=== PATIENT | male | born 1995 | race Caucasian/White ===

== ENCOUNTER 2017-05-23 15:45 | Inpatient (IN) ==
[2017-05-23] MEDS ORDERED: Haloperidol Lactate 5 MG/ML VIAL IVP ONE (15:48)
[2017-05-23] MEDS ORDERED: Haloperidol Lactate 5 MG/ML VIAL ONE ×2 (15:49→16:12)
[2017-05-23] MEDS ORDERED: *HR* LORazepam 2 MG/ML VIAL ONE ×2 (15:49→16:12)
[2017-05-23] MEDS ORDERED: *HR* LORazepam 2 MG/ML VIAL IM ONE (15:52)
[2017-05-23] MEDS ORDERED: Haloperidol Lactate 5 MG/ML VIAL IM ONE (15:52)
[2017-05-23] MEDS ORDERED: Ziprasidone injection 20 MG/ML VIAL IM ONE ×2 (16:17→16:44)
--- NOTE | 2017-05-23 16:41 | Emergency Department Note ---
Overdose - Lab Data Lab results reviewed: Yes I reviewed the patient's lab results. Result diagrams: 05/23/17 16:44 05/23/17 16:44 Lab Results 05/23/17 05/23/17 05/23/17 Range/Units 16:44 16:44 17:45 WBC 12.0 H (4.3-11.1) K/mcL RBC 5.28 (4.19-5.50) M/mcL Hgb 16.2 (12.9-16.9) g/dL Hct 49.5 (37.5-50.1) % MCV 93.8 (83.0-100.0) fL MCH 30.7 (28.0-33.3) pg MCHC 32.7 (31.6-35.5) g/dL RDW 13.1 (11.5-14.5) % Plt Count 316 (140-400) K/mcL MPV 9.9 (9.4-12.4) fL Immature Gran % 0.8 (0-4) % Seg Neutrophils % 56.5 % Lymphocytes % 32.0 % Monocytes % 5.8 % Eosinophils % 3.8 % Basophils % 1.1 % Neutrophils # 6.8 (1.6-8.9) K/mcL Lymphocytes # 3.8 (0.6-4.6) K/mcL Monocytes # 0.7 (0.0-1.3) K/mcL Eosinophils # 0.5 (0.0-0.6) K/mcL Basophils # 0.1 (0.0-0.2) K/mcL Sodium 141 (136-145) mEq/L Potassium 3.7 (3.5-4.5) mEq/L Chloride 102 (98-109) mEq/L Carbon Dioxide 10 L* (19-29) mEq/L BUN 10 (8-26) mg/dL Creatinine 1.19 (0.72-1.25) mg/dL Est GFR ( Amer) > 60 (> 60) Est GFR (Non-Af Amer) > 60 (> 60) BUN/Creatinine Ratio 8 (6-26) Glucose 199 H (70-99) mg/dL Calculated Osmolality 297 (280-300) Calcium 10.3 (8.6-10.8) mg/dL Total Bilirubin 0.7 (0.2-1.2) mg/dL Direct Bilirubin 0.3 (0.0-0.5) mg/dL Indirect Bilirubin 0.4 (0.0-1.2) mg/dL AST 31 (5-34) Units/L ALT 36 (0-55) Units/L Alkaline Phosphatase 84 (38-126) Units/L Serum Total Protein 8.1 (6.0-8.3) g/dL Albumin 4.2 (3.5-5.0) g/dL Globulin 3.9 H (2.4-3.5) g/dL Albumin/Globulin Ratio 1.1 (1.1-2.2) Urine Color Yellow (Yellow) Urine Clarity Clear (Clear) Urine pH 5.0 (5.0-8.0) pH Units Ur Specific Dresher > 1.030 H (1.010-1.025) Urine Protein 30 H (Neg-Trace) mg/dL Urine Glucose (UA) Normal (Normal) mg/dL Urine Ketones Negative (Negative) mg/dL Urine Blood Negative (Negative) Urine Nitrite Negative (Negative) Urine Bilirubin Negative (Negative) Urine Urobilinogen Normal (Normal) mg/dL Ur Leukocyte Esterase Negative (Negative) Urine Microscopic RBC 3-5 H (0-3) per hpf Urine Microscopic WBC 5-15 H (0-3) per hpf Ur Squamous Epith Cells Many H (None-Few) per lpf Amorphous Sediment Few (Few) Urine Bacteria None Seen (None-Few) per hpf Hyaline Casts Moderate H (None-Few) per lpf Salicylates < 5.0 L (15-30) mg/dL Urine Opiates Screen (Lldhul=514) ng/mL Acetaminophen 209.0 H* (10-30) mcg/mL Ur Barbiturates Screen (Xjlkdc=979) ng/mL Ur Phencyclidine Scrn (Cutoff=25) ng/mL Ur Amphetamines Screen (Pbmjpw=7156) ng/mL U Benzodiazepines Scrn (Hmyjgv=053) ng/mL Urine Cocaine Screen (Cutoff= 300) ng/mL U Marijuana (THC) Screen (Cutoff = 50) ng/mL Ethyl Alcohol < 10 (0-10) mg/dL 05/23/17 05/23/17 Range/Units 17:47 19:47 WBC (4.3-11.1) K/mcL RBC (4.19-5.50) M/mcL Hgb (12.9-16.9) g/dL Hct (37.5-50.1) % MCV (83.0-100.0) fL MCH (28.0-33.3) pg MCHC (31.6-35.5) g/dL RDW (11.5-14.5) % Plt Count (140-400) K/mcL MPV (9.4-12.4) fL Immature Gran % (0-4) % Seg Neutrophils % % Lymphocytes % % Monocytes % % Eosinophils % % Basophils % % Neutrophils # (1.6-8.9) K/mcL Lymphocytes # (0.6-4.6) K/mcL Monocytes # (0.0-1.3) K/mcL Eosinophils # (0.0-0.6) K/mcL Basophils # (0.0-0.2) K/mcL Sodium (136-145) mEq/L Potassium (3.5-4.5) mEq/L Chloride (98-109) mEq/L Carbon Dioxide (19-29) mEq/L BUN (8-26) mg/dL Creatinine (0.72-1.25) mg/dL Est GFR ( Amer) (> 60) Est GFR (Non-Af Amer) (> 60) BUN/Creatinine Ratio (6-26) Glucose (70-99) mg/dL Calculated Osmolality (280-300) Calcium (8.6-10.8) mg/dL Total Bilirubin (0.2-1.2) mg/dL Direct Bilirubin (0.0-0.5) mg/dL Indirect Bilirubin (0.0-1.2) mg/dL AST (5-34) Units/L ALT (0-55) Units/L Alkaline Phosphatase (38-126) Units/L Serum Total Protein (6.0-8.3) g/dL Albumin (3.5-5.0) g/dL Globulin (2.4-3.5) g/dL Albumin/Globulin Ratio (1.1-2.2) Urine Color (Yellow) Urine Clarity (Clear) Urine pH (5.0-8.0) pH Units Ur Specific Dresher (1.010-1.025) Urine Protein (Neg-Trace) mg/dL Urine Glucose (UA) (Normal) mg/dL Urine Ketones (Negative) mg/dL Urine Blood (Negative) Urine Nitrite (Negative) Urine Bilirubin (Negative) Urine Urobilinogen (Normal) mg/dL Ur Leukocyte Esterase (Negative) Urine Microscopic RBC (0-3) per hpf Urine Microscopic WBC (0-3) per hpf Ur Squamous Epith Cells (None-Few) per lpf Amorphous Sediment (Few) Urine Bacteria (None-Few) per hpf Hyaline Casts (None-Few) per lpf Salicylates (15-30) mg/dL Urine Opiates Screen Negative (Hvmokk=265) ng/mL Acetaminophen 169.0 H* (10-30) mcg/mL Ur Barbiturates Screen Negative (Thkxwa=036) ng/mL Ur Phencyclidine Scrn Negative (Cutoff=25) ng/mL Ur Amphetamines Screen Negative (Bmkaxh=2804) ng/mL U Benzodiazepines Scrn Negative (Hpzjij=581) ng/mL Urine Cocaine Screen Negative (Cutoff= 300) ng/mL U Marijuana (THC) Screen Positive H (Cutoff = 50) ng/mL Ethyl Alcohol (0-10) mg/dL - EKG Data EKG attestation: Yes I reviewed and interpreted this EKG. EKG results narrative: Sinus tachycardia rate 122 when necessary 117 QRS 90 QT/QTC 325/397. No acute ST segment elevation Overdose HPI - General Chief Complaint: ED Psychiatric Symptoms Stated Complaint: overdose Time Seen by Provider: 05/23/17 15:48 Source: patient, family, EMS Mode of arrival: EMS Limitations: no limitations, other (Patient's refusal to cooperate) Nursing Notes Reviewed: Yes Vital Signs Reviewed: Yes - History of Present Illness HPI Narrative: Patient arrives via EMS. He admits to swallowing approximately 3 bottles of dose unknown acetaminophen approximately 45 minutes prior to arrival. He thinks there were 24 tablets per bottle. He also took generic [id number] sleep aids of unknown name. He did not vomit after the ingestion. He denies ingestion of any illicit drugs or co-intoxicants Pt Subjective Complaint: intentional overdose Onset (ago): Just [employer] Intent: suicide attempt How Overdose Was Discovered: called counselor (attempted multiple times to call the crisis center) Associated symptoms: depression Treatments Prior to Arrival: none - Related Data Previous Rx's Medication Instructions Recorded Amoxicillin/Clavulanate [Augmentin] 875 mg PO BIDWM #10 tablet 08/29/16 Ibuprofen [Motrin] 600 mg PO Q6HR PRN #20 tab 08/29/16 Albuterol Sulfate [Albuterol 2 puff IH Q4HR PRN #1 hfa.[id number].ad 12/20/16 Inhaler] Sulfamethoxazole/Trimeth DS 1 each PO BID #20 tablet 12/20/16 [Bactrim DS] cephALEXin [Keflex] 500 mg PO QID #40 capsule 12/20/16 Cephalexin [Keflex] 500 mg PO QID #28 capsule 04/23/17 Ibuprofen [Motrin] 600 mg PO Q8HR PRN #20 tab 04/23/17 Sulfamethoxazole/Trimeth DS 1 each PO BID #14 tablet 04/23/17 [Bactrim DS] Allergies Allergy/AdvReac Type Severity Reaction Status Date / Time No Known Allergies Allergy Verified 12/20/16 01:37 Limitations: ROS unobtainable due to patients medical condition Past Medical History - Past Medical History Source: patient Medical history: Reports: no medical history Surgical history: Reports: non-contributory Psychiatric history: Reports: depression - Social History Smoking Status: Current every day smoker Smokeless Tobacco Status: No Alcohol use: Reports: none Drug use: Reports: none Physical Exam Patient initially refused to cooperate. He was nonverbal - General Limitations: no limitations, other General appearance: alert, anxious - Head Head exam: atraumatic - Eye Eye exam: Present: normal appearance, PERRL - ENT ENT exam: normal exam - Neck Neck exam: Present: normal inspection, full ROM - Chest Chest inspection: Present: normal inspection, symmetric chest wall rise - Respiratory Respiratory exam: Present: normal lung sounds bilaterally - Cardiovascular Cardiovascular exam: Present: tachycardia - Abdominal Exam Abdominal exam: Present: soft, Non-Tender - Rectal Exam Rectal exam: Present: deferred - Male exam: Present: normal inspection - Extremities Exam Extremities exam: Present: normal inspection - Neurological Exam Neurological exam: Present: alert, oriented X3, CN II-XII intact - Psychiatric Psychiatric exam: Present: agitated, anxious - Skin Skin exam: Present: warm, dry, intact Course Course Narrative: Patient arrives by EMS. He admits to taking 3 bottles of 24 account acetaminophen 45 minutes prior to arrival. He became acutely agitated and aggressive with staff. He attempted to relieve that required physical restraint by staff. He was spitting, cursing, punching, kicking. He required chemical sedation with Haldol and Ativan and then subsequently with Geodon. He also required physical restraints. This was done in the patient's best interest in order to facilitate medical treatment and psychiatric evaluation. The mother is at bedside. She states the patient has a history of depression and bipolar and she cannot control his behavior either. She agrees with our management including our need to restrain the patient for evaluation - Reevaluation(s) Reevaluation #1: Patient sleeping. Sedative medications have taken appropriate affect Time: 17:32 - Consultations Consultation #1: poison control center Time: 16:51 Consultation #2: call again placed to [facility] Time: 20:12 Vital Signs Temperature 97.6 F 05/23/17 15:55 Pulse Rate 131 05/23/17 15:55 Respiratory Rate 20 05/23/17 15:55 Blood Pressure 144/89 05/23/17 15:55 O2 Sat by Pulse Oximetry 97 05/23/17 15:55 Temperature 97.6 F 05/23/17 15:55 Pulse Rate 80 05/23/17 18:55 Respiratory Rate 97 05/23/17 18:55 Blood Pressure 117/66 05/23/17 18:55 O2 Sat by Pulse Oximetry 97 05/23/17 18:55 Oxygen Delivery Oxygen Delivery Room Air Critical Care Time Critical Care Time: Yes Total Critical Care Time: 60 Attestation: The high probability of a clinically significant, sudden or life threatening deterioration of the [] system(s) required my full and direct attention, intervention and personal management. The aggregate critical care time was [] minutes. This time is in addition to time spent performing reported procedures but includes the following: [] Data Review and interpretation [] Patient assessment and monitoring of vital signs [] Documentation [] Medication orders and management Disposition Clinical Impression: Suicidal ideation Tylenol overdose Qualifiers: Encounter type: initial encounter Injury intent: intentional self-harm Qualified Code(s): T39.1X2A - Poisoning by 4-Aminophenol derivatives, intentional self-harm, initial encounter Tylenol poisoning Qualifiers: Encounter type: initial encounter Injury intent: intentional self-harm Qualified Code(s): T39.1X2A - Poisoning by 4-Aminophenol derivatives, intentional self-harm, initial encounter Psychosis Qualifiers: Psychosis type: unspecified psychosis type Qualified Code(s): F29 - Unspecified psychosis not due to a substance or known physiological condition Disposition: Admitted As Inpatient Condition: Serious Referrals: NONE,PCP [Primary Care Provider] - Forms: ED Satisfaction Letter Time of Disposition: 20:15
[2017-05-23 16:52] LABS: Basophils # 0.1 K/mcL (0.0-0.2); Basophils % 1.1 %; Eosinophils # 0.5 K/mcL (0.0-0.6); Eosinophils % 3.8 %; Hematocrit 49.5 % (37.5-50.1); Hemoglobin 16.2 g/dL (12.9-16.9); Immature Granulocytes % 0.8 % (0-4); Lymphocytes # 3.8 K/mcL (0.6-4.6); Mean Corpuscular HGB Conc 32.7 g/dL (31.6-35.5); Mean Corpuscular Hemoglobin 30.7 pg (28.0-33.3); Mean Corpuscular Volume 93.8 fL (83.0-100.0); Mean Platelet Volume 9.9 fL (9.4-12.4); Monocytes # 0.7 K/mcL (0.0-1.3); Monocytes % 5.8 %; Neutrophils # 6.8 K/mcL (1.6-8.9); Platelet Count 316 K/mcL (140-400); Red Blood Count 5.28 M/mcL (4.19-5.50); Red Cell Distribution Width 13.1 % (11.5-14.5); Segmented Neutrophils % 56.5 %
[2017-05-23] MEDS ORDERED: 0.9 % Sodium Chloride 1,000 ML ONE (16:56)
[2017-05-23 17:07] LABS: Alanine Aminotransferase 36 Units/L (0-55); Albumin 4.2 g/dL (3.5-5.0); Albumin/Globulin Ratio 1.1 (1.1-2.2); Alkaline Phosphatase 84 Units/L (38-126); Aspartate Amino Transferase 31 Units/L (5-34); BUN/Creatinine Ratio 8 (6-26); Bilirubin,Direct 0.3 mg/dL (0.0-0.5); Bilirubin,Indirect 0.4 mg/dL (0.0-1.2); Bilirubin,Total 0.7 mg/dL (0.2-1.2); Blood Urea Nitrogen 10 mg/dL (8-26); Calcium 10.3 mg/dL (8.6-10.8); Chloride 102 mEq/L (98-109); Globulin 3.9 g/dL (2.4-3.5); Glucose 199 mg/dL (70-99); Osmolality,Calculated 297 (280-300); Potassium 3.7 mEq/L (3.5-4.5); Sodium 141 mEq/L (136-145); Total Protein 8.1 g/dL (6.0-8.3); eGFR For African Americans > 60 (> 60); eGFR For Non-African Americans > 60 (> 60)
[2017-05-23 17:09] LABS: Ethanol < 10 mg/dL (0-10); Salicylate < 5.0 mg/dL (15-30)
[2017-05-23 17:12] LABS: Carbon Dioxide 10 mEq/L (19-29)
[2017-05-23 18:02] LABS: Bilirubin,Urine Negative (Negative); Blood,Urine Negative (Negative); Clarity,Urine Clear (Clear); Color,Urine Yellow (Yellow); Glucose,Urine (UA) Normal (Normal); Ketones,Urine Negative (Negative); Leukocyte Esterase,Urine Negative (Negative); Nitrite,Urine Negative (Negative); Protein,Urine 30 mg/dL (Neg-Trace); Specific Gravity,Urine > 1.030 (1.010-1.025); Urobilinogen,Urine Normal (Normal)
[2017-05-23 18:04] LABS: Bacteria,Urine None Seen per hpf (None-Few); Squamous Epithelial Cell,Urine Many per lpf (None-Few)
[2017-05-23 18:09] LABS: Amphetamine Screen,Urine Negative ng/mL (Cutoff=1000); Barbiturate Screen,Urine Negative ng/mL (Cutoff=200); Benzodiazepines Screen,Urine Negative ng/mL (Cutoff=200); Cannabinoid Screen,Urine Positive ng/mL (Cutoff = 50); Cocaine Screen,Urine Negative ng/mL (Cutoff= 300); Opiate Screen,Urine Negative ng/mL (Cutoff=300); Phencyclidine Screen,Urine Negative ng/mL (Cutoff=25)
[2017-05-23 18:16] LABS: Hyaline Casts,Urine Moderate per lpf (None-Few)
[2017-05-23 18:17] LABS: Amorphous Sediment,Urine Few (Few)
[2017-05-23] MEDS ORDERED: ACETYLCYSTEINE IVC ONE ×3 (20:12→22:30)
[2017-05-23] MEDS ORDERED: D5 IVC ONE ×3 (20:12→22:30)
[2017-05-23] MEDS ORDERED: WATER IVC ONE ×3 (20:12→22:30)
[2017-05-23] MEDS ORDERED: Ondansetron 4 MG/2 ML VIAL IVP ONE (22:19)
[2017-05-23] MEDS ORDERED: Ondansetron 4 MG/2 ML VIAL ONE (22:24)
[2017-05-23] MEDS ORDERED: Ipratropium/Albuterol Neb 3 ML IH PRN (22:57)
[2017-05-23] MEDS ORDERED: Ipratropium/Albuterol Neb 3 ML ONE (23:05)
[2017-05-23] MEDS: 0.9 % Sodium Chloride 1,000 ML IVC SCH (23:11)
[2017-05-23] MEDS ORDERED: *HR* LORazepam 2 MG/ML VIAL IVP PRN (23:12)
[2017-05-23] MEDS ORDERED: Naloxone 0.4 MG/ML INJ IVP PRN (23:12)
[2017-05-24 00:30] LABS: INR 1.2; Prothrombin Time 12.9 Seconds (9.4-12.1)
[2017-05-24 00:37] LABS: Alanine Aminotransferase 32 Units/L (0-55); Albumin 3.6 g/dL (3.5-5.0); Albumin/Globulin Ratio 1.3 (1.1-2.2); Alkaline Phosphatase 64 Units/L (38-126); Aspartate Amino Transferase 42 Units/L (5-34); BUN/Creatinine Ratio 14 (6-26); Blood Urea Nitrogen 11 mg/dL (8-26); Calcium 8.9 mg/dL (8.6-10.8); Carbon Dioxide 23 mEq/L (19-29); Chloride 108 mEq/L (98-109); Globulin 2.7 g/dL (2.4-3.5); Glucose 122 mg/dL (70-99); Osmolality,Calculated 289 (280-300); Potassium 3.8 mEq/L (3.5-4.5); Sodium 139 mEq/L (136-145); eGFR For African Americans > 60 (> 60); eGFR For Non-African Americans > 60 (> 60)
[2017-05-24 00:39] LABS: Bilirubin,Total 1.2 mg/dL (0.2-1.2); Total Protein 6.3 g/dL (6.0-8.3)
[2017-05-24] MEDS ORDERED: Acetylcysteine 6,800 MG in D5% in Water 1,000 ML IVC ONE (02:30)
--- NOTE | 2017-05-24 04:27 | Internal Med History&Physical ---
Date of Encounter: 05/23/17 Time of Encounter: 22:00 Assessment and Plan (1) Tylenol overdose Current visit: Yes Status: Acute Patient has Tylenol overdose, suicidal attempt. Elevated Tylenol level. Poison control hotline contacted - Place patient on close monitoring in ICU. - 21 hour NAC IV protocol started. - Closely follow-up liver function, PT/INR, acetaminophen level. Total critical care time 35 minutes including history and physical, medical decision making. Qualifiers: Encounter type: initial encounter Injury intent: intentional self-harm Qualified Code(s): T39.1X2A - Poisoning by 4-Aminophenol derivatives, intentional self-harm, initial encounter (2) DVT prophylaxis Current visit: Yes Status: Acute Heparin subcutaneously (3) Psychosis Current visit: Yes Status: Acute We will consult psychiatry Qualifiers: Psychosis type: unspecified psychosis type Qualified Code(s): F29 - Unspecified psychosis not due to a substance or known physiological condition (4) Suicidal ideation Current visit: Yes Status: Acute Patient has a suicidal attempt. Place on one-to-one sitter. Consult psychiatry as the patient medically stabilized. Internal Medicine - H&P: HPI Chief complaint: Acetaminophen overdose Admitted From: Home Plans for Post Hospital Care: Home History of present illness: Mr. Garner is a 21 year old male with history of psychosis present to ER for acetaminophen overdose. Patient is a sedated when I saw him. There is no family member at the bedside. History obtained from ER documentation. Patient intentionally take 3 bottle of acetaminophen, tried to kill himself. Patient send to ER, combative. He was given holdal and geoden and calm down. Poison control was called by ER. Patient needs to the criteria of NAC treatment. The 21 hour NAC iv protocol started. When I saw patient, patient can be wake up by shaking his a shoulder, airway is patent. Patient was admitted to ICU for close monitoring. Past Med Surg Social Fam HX - Past Medical History Medical history: asthma Psychiatric history: anxiety, bipolar, depression - Past Surgical History Surgical History: non-contributory - Social History Smoking Status: Current every day smoker Smokeless Tobacco Status: No Alcohol use: none Drug use: none - Family History Mother History Unknown: Yes Internal Medicine - H&P: Meds No Known Home Drugs 05/23/17 [History] 3 Allergy/AdvReac Type Severity Reaction Status Date / Time No Known Allergies Allergy Verified 12/20/16 01:37 All Systems PM: A 10-system review of systems was performed and is negative for pertinent findings except as documented above in the HPI. - Constitutional Vitals: Temp Pulse Resp BP Pulse Ox 98.2 F 56 13 118/75 96 05/23/17 23:00 05/24/17 04:00 05/24/17 04:00 05/24/17 04:00 05/24/17 04:00 General appearance: Present: A&O X 0, no acute distress Exam: Sedated, airway patent, wake up by stimulation. - Head Head exam: Present: atraumatic, normocephalic - Eye Eye exam: Present: PERRL, conjuntiva pink, sclera anicteric Pupils: Present: PERRL - Neck Neck exam general surgery: Present: supple, trachea midline. Absent: lymphadenopathy - Respiratory Respiratory exam: Present: CTAB. Absent: accessory muscle use, rales, rhonchi, wheezes - Cardiovascular Cardiovascular exam: Present: RRR, +S1, +S2. Absent: diastolic murmur, gallop, rubs, systolic murmur - GI/Abdominal GI/Abdominal exam: Present: normal bowel sounds, soft, no peritoneal signs. Absent: distended, tenderness - Extremities Exam Extremities exam: Present: warm, radial pulses palpable and symmetrical. Absent : calf tenderness, cyanotic, pedal edema - Neurological Exam Neurological exam: Present: CN II-XII intact, oriented X3, no focal deficits. Absent: pronater drift, facial droop, speech deficit - Skin Skin exam: Present: dry, intact Internal Med - H&P Results - Labs CBC & Chem 7: 05/23/17 16:44 05/24/17 00:14 Labs: BMP 05/24/17 00:14 Sodium 139 Potassium 3.8 Chloride 108 Carbon Dioxide 23 BUN 11 Creatinine 0.81 Glucose 122 H Calcium 8.9 Liver Function 05/24/17 Range/Units 00:14 Total Bilirubin 1.2 D (0.2-1.2) mg/dL AST 42 H (5-34) Units/L ALT 32 (0-55) Units/L Alkaline Phosphatase 64 (38-126) Units/L Albumin 3.6 (3.5-5.0) g/dL
[2017-05-24 05:03] LABS: Basophils # 0.1 K/mcL (0.0-0.2); Basophils % 0.8 %; Eosinophils # 0.2 K/mcL (0.0-0.6); Eosinophils % 1.9 %; Hemoglobin 14.1 g/dL (12.9-16.9); Immature Granulocytes % 0.3 % (0-4); Lymphocytes # 3.1 K/mcL (0.6-4.6); Lymphocytes % 25.2 %; Mean Corpuscular HGB Conc 34.4 g/dL (31.6-35.5); Mean Corpuscular Hemoglobin 30.6 pg (28.0-33.3); Mean Corpuscular Volume 88.9 fL (83.0-100.0); Mean Platelet Volume 10.3 fL (9.4-12.4); Monocytes # 0.8 K/mcL (0.0-1.3); Monocytes % 6.5 %; Neutrophils # 7.9 K/mcL (1.6-8.9); Platelet Count 266 K/mcL (140-400); Red Blood Count 4.61 M/mcL (4.19-5.50); Red Cell Distribution Width 13.2 % (11.5-14.5); Segmented Neutrophils % 65.3 %
[2017-05-24 05:08] LABS: INR 1.3; Prothrombin Time 14.6 Seconds (9.4-12.1)
[2017-05-24 05:23] LABS: Alanine Aminotransferase 33 Units/L (0-55); Albumin 3.1 g/dL (3.5-5.0); Albumin/Globulin Ratio 1.1 (1.1-2.2); Alkaline Phosphatase 58 Units/L (38-126); Aspartate Amino Transferase 43 Units/L (5-34); BUN/Creatinine Ratio 13 (6-26); Bilirubin,Total 1.1 mg/dL (0.2-1.2); Blood Urea Nitrogen 10 mg/dL (8-26); Calcium 8.4 mg/dL (8.6-10.8); Carbon Dioxide 22 mEq/L (19-29); Chloride 108 mEq/L (98-109); Globulin 2.9 g/dL (2.4-3.5); Glucose 103 mg/dL (70-99); Osmolality,Calculated 285 (280-300); Potassium 3.6 mEq/L (3.5-4.5); Sodium 138 mEq/L (136-145); eGFR For African Americans > 60 (> 60); eGFR For Non-African Americans > 60 (> 60)
[2017-05-24] MEDS: 0.9 % Sodium Chloride 1,000 ML IVC SCH (06:20)
[2017-05-24] MEDS ORDERED: Haloperidol Lactate 5 MG/ML VIAL IVP PRN (08:09)
[2017-05-24] MEDS ORDERED: *HR* LORazepam 2 MG/ML VIAL IVP PRN (08:10)
[2017-05-24 08:44] LABS: Alanine Aminotransferase 37 Units/L (0-55); Albumin 3.2 g/dL (3.5-5.0); Albumin/Globulin Ratio 1.1 (1.1-2.2); Alkaline Phosphatase 59 Units/L (38-126); Aspartate Amino Transferase 48 Units/L (5-34); BUN/Creatinine Ratio 13 (6-26); Bilirubin,Total 1.4 mg/dL (0.2-1.2); Blood Urea Nitrogen 10 mg/dL (8-26); Calcium 8.6 mg/dL (8.6-10.8); Carbon Dioxide 21 mEq/L (19-29); Chloride 108 mEq/L (98-109); Globulin 2.9 g/dL (2.4-3.5); Glucose 95 mg/dL (70-99); Osmolality,Calculated 289 (280-300); Potassium 3.7 mEq/L (3.5-4.5); Sodium 140 mEq/L (136-145); Total Protein 6.1 g/dL (6.0-8.3); eGFR For African Americans > 60 (> 60); eGFR For Non-African Americans > 60 (> 60)
[2017-05-24] MEDS: D5% in 0.9% NACL 1,000 ML IVC SCH ×3 (09:06→23:55)
--- NOTE | 2017-05-24 15:20 | Internal Med Progress Note ---
Date of Encounter: 05/24/17 Time of Encounter: 08:00 - Assessment and plan (1) Tylenol overdose Current Visit: Yes Status: Acute Assessment and plan: Tylenol overdose with suicidal attempt His initial Tylenol level 209 2 hrs after ingestion. this morning 24.0 16 hrs later Trending down nicely Noraml LFT's so far cont antidote Acetyl cysteine gtt Cont IVF Accu check ACHS Clear liquid diet and advance as tolerated Pt is still high risk for hepato toxicity.. however medically stable to transfer to [facility] / 2 A today Qualifiers: Encounter type: initial encounter Injury intent: intentional self-harm Qualified Code(s): T39.1X2A - Poisoning by 4-Aminophenol derivatives, intentional self-harm, initial encounter (2) Substance abuse Current Visit: Yes Status: Acute Assessment and plan: counseled to quit doing Marijuana and other illicit drugs on Ativan and Haldol prn for withdraw symptoms (3) Suicidal ideation Current Visit: Yes Status: Acute Assessment and plan: Denied any active suicidal ideation now cont 1 on 1 sitter Psych consulted (4) Tobacco dependence Current Visit: Yes Status: Acute Assessment and plan: counseled to quit on nicotine patch (5) Psychosis Current Visit: Yes Status: Acute Assessment and plan: Multi factorial could be due to metabolic encephaloapthy too improved now cont close monitoring on Ativan and Haldol PRN Qualifiers: Psychosis type: unspecified psychosis type Qualified Code(s): F29 - Unspecified psychosis not due to a substance or known physiological condition (6) Major depression Current Visit: Yes Status: Acute Assessment and plan: consulted Psych for further eval Qualifiers: Qualified Code(s): F32.9 - Major depressive disorder, single episode, unspecified - Subjective Interval history: Mr. Garner is a 21 year old male with known PMH of Bipolar / Depression , Poly substance abuse who was brought into ER by family y/d afternoon around 3.00 PM stating he did take a bottle full of Tylenol tablets an hour prior to ER visit around 2.00 PM. He did mentioned he is going through some personal problems lately, also he is feeling more depressed and unable to see a psychiatrist right on time, he wanted kill himself by overdoing on Tylenol tablets. He denied any Alcohol dependence / abuse or Illicit drug usage. However his UDS came back as positive for Marijuana. Pt stated he is feeling better now.. He is more alert, awake and O x 3. Denied any CP / SOB. Denied any suicidal ideation now. - Constitutional Vitals: Temp Pulse Resp BP Pulse Ox 98.2 F 72 19 132/65 94 05/24/17 11:06 05/24/17 11:45 05/24/17 11:45 05/24/17 11:45 05/24/17 11:45 General appearance: Present: A&O X 3, no acute distress - Head Head exam: Present: atraumatic, normal inspection - Neck Neck exam general surgery: Present: supple - Respiratory Respiratory exam: Present: CTAB. Absent: accessory muscle use, rales, rhonchi, wheezes - Cardiovascular Cardiovascular exam: Present: RRR, +S1, +S2. Absent: systolic murmur - GI/Abdominal GI/Abdominal exam: Present: normal bowel sounds, soft. Absent: distended, rebound, rigid, tenderness - Extremities Exam Extremities exam: Absent: calf tenderness, pedal edema, tenderness - Back Exam Back exam: Absent: CVA tenderness (L), CVA tenderness (R) - Neurological Exam Neurological exam: Present: alert, oriented X3, no focal deficits - Psychiatric Psychiatric exam: Present: depressed. Absent: agitated, homicidal ideation, manic, suicidal ideation Internal Medicine: Result - Labs CBC & Chem 7: 05/24/17 04:15 05/24/17 07:38 Labs: Short CBC 05/24/17 Range/Units 04:15 WBC 12.1 H (4.3-11.1) K/mcL Hgb 14.1 D (12.9-16.9) g/dL Hct 41.0 (37.5-50.1) % Plt Count 266 (140-400) K/mcL Neutrophils # 7.9 (1.6-8.9) K/mcL BMP 05/24/17 05/24/17 05/24/17 00:14 04:15 07:38 Sodium 139 138 140 Potassium 3.8 3.6 3.7 Chloride 108 108 108 Carbon Dioxide 23 22 21 BUN 11 10 10 Creatinine 0.81 0.80 0.78 Glucose 122 H 103 H 95 Calcium 8.9 8.4 L 8.6 Liver Function 05/24/17 05/24/17 05/24/17 Range/Units 00:14 04:15 07:38 Total Bilirubin 1.2 D 1.1 1.4 H (0.2-1.2) mg/dL AST 42 H 43 H 48 H (5-34) Units/L ALT 32 33 37 (0-55) Units/L Alkaline Phosphatase 64 58 59 (38-126) Units/L Albumin 3.6 3.1 L 3.2 L (3.5-5.0) g/dL - ABG Interpretation ABG results: PT/INR, D-dimer PT 14.6 Seconds (9.4-12.1) H 05/24/17 04:15 - VTE Documentation of Mechanical Device: Intermittent pneumatic compression device Consult Discharge Plan - Plan Referrals: NONE,PCP [Primary Care Provider] -
[2017-05-24 15:58] LABS: Albumin 3.3 g/dL (3.5-5.0); Albumin/Globulin Ratio 1.1 (1.1-2.2); Bilirubin,Direct 0.5 mg/dL (0.0-0.5); Bilirubin,Indirect 0.9 mg/dL (0.0-1.2); Bilirubin,Total 1.4 mg/dL (0.2-1.2); Total Protein 6.3 g/dL (6.0-8.3)
[2017-05-24] MEDS ORDERED: Acetylcysteine 6,500 MG in D5% in Water 1,000 ML IVC ONE (17:39)
[2017-05-24] MEDS ORDERED: Ondansetron 4 MG/2 ML VIAL IVP PRN (17:41)
--- NOTE | 2017-05-24 17:56 | Electrocardiograph Report ---
[address] [place], [place] [address] Test Date: 2017-05-23 Pat Name: Fili Garner Department: 104 Room: [facility] Gender: M Procedure Tech: : 1995 Requested By: Gagandeep Moy Order Number: [id number] Reading MD: Tristian Copeland MD Measurements Intervals [place] Rate: 122 P: 72 CA: 117 QRS: 70 QRSD: 90 T: 54 QT: 325 QTc: 397 Interpretive Statements SINUS TACHYCARDIA WITH SHORT CA INTERVAL Electronically Signed On 05-24-2017 17:54:21 EST by Tristian Copeland MD
[2017-05-24 23:51] LABS: Alanine Aminotransferase 52 Units/L (0-55); Albumin 3.4 g/dL (3.5-5.0); Albumin/Globulin Ratio 1.2 (1.1-2.2); Alkaline Phosphatase 62 Units/L (38-126); Aspartate Amino Transferase 53 Units/L (5-34); BUN/Creatinine Ratio 7 (6-26); Bilirubin,Total 1.1 mg/dL (0.2-1.2); Calcium 8.9 mg/dL (8.6-10.8); Carbon Dioxide 21 mEq/L (19-29); Chloride 111 mEq/L (98-109); Globulin 2.8 g/dL (2.4-3.5); Glucose 102 mg/dL (70-99); Osmolality,Calculated 287 (280-300); Potassium 3.8 mEq/L (3.5-4.5); Sodium 140 mEq/L (136-145); Total Protein 6.2 g/dL (6.0-8.3); eGFR For African Americans > 60 (> 60); eGFR For Non-African Americans > 60 (> 60)
[2017-05-24 23:53] LABS: Blood Urea Nitrogen 5 mg/dL (8-26)
[2017-05-25 01:48] LABS: Acetaminophen < 1.0 mcg/mL (10-30)
[2017-05-25 04:40] LABS: Basophils # 0.1 K/mcL (0.0-0.2); Basophils % 0.8 %; Eosinophils # 0.4 K/mcL (0.0-0.6); Eosinophils % 4.8 %; Hematocrit 39.7 % (37.5-50.1); Hemoglobin 13.3 g/dL (12.9-16.9); Immature Granulocytes % 0.3 % (0-4); Lymphocytes # 2.7 K/mcL (0.6-4.6); Lymphocytes % 34.9 %; Mean Corpuscular HGB Conc 33.5 g/dL (31.6-35.5); Mean Corpuscular Hemoglobin 30.6 pg (28.0-33.3); Mean Corpuscular Volume 91.5 fL (83.0-100.0); Mean Platelet Volume 10.1 fL (9.4-12.4); Monocytes # 0.5 K/mcL (0.0-1.3); Monocytes % 6.9 %; Platelet Count 261 K/mcL (140-400); Red Blood Count 4.34 M/mcL (4.19-5.50); Red Cell Distribution Width 12.8 % (11.5-14.5); Segmented Neutrophils % 52.3 %
[2017-05-25 04:53] LABS: BUN/Creatinine Ratio 6 (6-26); Carbon Dioxide 25 mEq/L (19-29); Chloride 110 mEq/L (98-109); Sodium 142 mEq/L (136-145); eGFR For African Americans > 60 (> 60)
[2017-05-25 04:54] LABS: Acetaminophen < 1.0 mcg/mL (10-30); Alanine Aminotransferase 51 Units/L (0-55); Albumin 3.1 g/dL (3.5-5.0); Albumin/Globulin Ratio 1.1 (1.1-2.2); Alkaline Phosphatase 57 Units/L (38-126); Aspartate Amino Transferase 48 Units/L (5-34); Bilirubin,Total 0.7 mg/dL (0.2-1.2); Blood Urea Nitrogen 4 mg/dL (8-26); Calcium 8.6 mg/dL (8.6-10.8); Globulin 2.9 g/dL (2.4-3.5); Glucose 117 mg/dL (70-99); Osmolality,Calculated 292 (280-300); eGFR For Non-African Americans > 60 (> 60)
[2017-05-25] MEDS ORDERED: *HR* LORazepam 0.5 MG TABLET PO PRN (08:27)
[2017-05-25] MEDS ORDERED: Acetylcysteine 6,500 MG in D5% in Water 1,000 ML IVC ONE (09:37)
--- NOTE | 2017-05-25 12:04 | Internal Med Progress Note ---
Date of Encounter: 05/25/17 Time of Encounter: 09:00 - Assessment and plan (1) Tylenol overdose Current Visit: Yes Status: Acute Assessment and plan: Tylenol overdose with suicidal attempt His initial Tylenol level 209 2 hrs after ingestion. went down to > 1.0 after 24hrs after ingestion Reviewed tylenol level this AM < 1.0 As per poison control recommendation will continue acetyl cystiene gtt for another 16 hrs - total 21+ 16hrs Bili went up to 1.4 and started trending down now.. this morning @ 0.7 AST also started trending down Accu check ACHS tolerating regular diet well Pt is still high risk for hepato toxicity. Qualifiers: Encounter type: initial encounter Injury intent: intentional self-harm Qualified Code(s): T39.1X2A - Poisoning by 4-Aminophenol derivatives, intentional self-harm, initial encounter (2) Substance abuse Current Visit: Yes Status: Acute Assessment and plan: counseled to quit doing Marijuana and other illicit drugs on Ativan and Haldol prn for withdraw symptoms (3) Suicidal ideation Current Visit: Yes Status: Acute Assessment and plan: Denied any active suicidal ideation now cont 1 on sitter Psych consulted..waiting on psych eval (4) Tobacco dependence Current Visit: Yes Status: Acute Assessment and plan: counseled to quit on nicotine patch (5) Psychosis Current Visit: Yes Status: Acute Assessment and plan: Multi factorial could be due to metabolic encephaloapthy too improved now cont close monitoring on Ativan and Haldol PRN Qualifiers: Psychosis type: unspecified psychosis type Qualified Code(s): F29 - Unspecified psychosis not due to a substance or known physiological condition (6) Acute metabolic encephalopathy Current Visit: Yes Status: Acute Assessment and plan: due to tylenol overdose / poisoning improved (7) Major depression Current Visit: Yes Status: Acute Assessment and plan: consulted Psych for further eval Qualifiers: Qualified Code(s): F32.9 - Major depressive disorder, single episode, unspecified - Subjective Interval history: Mr. Garner is a 21 year old male with known PMH of Bipolar / Depression , Poly substance abuse who was brought into ER by family y/d afternoon around 3.00 PM stating he did take a bottle full of Tylenol tablets an hour prior to ER visit around 2.00 PM. He did mentioned he is going through some personal problems lately, also he is feeling more depressed and unable to see a psychiatrist right on time, he wanted kill himself by overdoing on Tylenol tablets. He denied any Alcohol dependence / abuse or Illicit drug usage. However his UDS came back as positive for Marijuana. Pt stated he is feeling better now.. He is more alert, awake and O x 3. Denied any CP / SOB. Denied any suicidal ideation now. No events over night - Constitutional Vitals: Temp Pulse Resp BP Pulse Ox 98 F 90 14 137/78 95 05/25/17 08:55 05/25/17 08:55 05/25/17 08:55 05/25/17 08:55 05/25/17 08:55 General appearance: Present: A&O X 3, no acute distress - Head Head exam: Present: atraumatic, normal inspection - Respiratory Respiratory exam: Present: CTAB. Absent: rales, respiratory distress, rhonchi, wheezes - Cardiovascular Cardiovascular exam: Present: RRR, +S1, +S2. Absent: systolic murmur - GI/Abdominal GI/Abdominal exam: Present: normal bowel sounds, soft. Absent: rebound, rigid, tenderness - Extremities Exam Extremities exam: Absent: calf tenderness, pedal edema, tenderness - Back Exam Back exam: Absent: CVA tenderness (L), CVA tenderness (R) - Neurological Exam Neurological exam: Present: alert, oriented X3 - Psychiatric Psychiatric exam: Present: normal affect, normal mood Internal Medicine: Result - Labs CBC & Chem 7: 05/25/17 04:14 05/25/17 04:14 Labs: Short CBC 05/25/17 Range/Units 04:14 WBC 7.7 (4.3-11.1) K/mcL Hgb 13.3 (12.9-16.9) g/dL Hct 39.7 (37.5-50.1) % Plt Count 261 (140-400) K/mcL Neutrophils # 4.0 (1.6-8.9) K/mcL BMP 05/24/17 05/25/17 22:48 04:14 Sodium 140 142 Potassium 3.8 4.0 Chloride 111 H 110 H Carbon Dioxide 21 25 BUN 5 L 4 L Creatinine 0.76 0.71 L Glucose 102 H 117 H Calcium 8.9 8.6 Liver Function 05/24/17 05/24/17 05/25/17 Range/Units 15:35 22:48 04:14 Total Bilirubin 1.4 H 1.1 0.7 (0.2-1.2) mg/dL Direct Bilirubin 0.5 (0.0-0.5) mg/dL AST 54 H 53 H 48 H (5-34) Units/L ALT 45 52 51 (0-55) Units/L Alkaline Phosphatase 62 62 57 (38-126) Units/L Albumin 3.3 L 3.4 L 3.1 L (3.5-5.0) g/dL - ABG Interpretation ABG results: PT/INR, D-dimer PT 14.6 Seconds (9.4-12.1) H 05/24/17 04:15 - VTE Documentation of Mechanical Device: Intermittent pneumatic compression device Consult Discharge Plan - Plan Referrals: Steven,Gideon Vargas MD [Non-Partnered Physician] - 06/20/17 2:00 pm (please do not miss your appt. to get establish) NONE,PCP [Primary Care Provider] -
--- NOTE | 2017-05-25 12:37 | Consult Note ---
Date of Encounter: 05/25/17 Time of Encounter: 11:40 Assessment & Recommendation (1) Major depression Current visit: Yes Status: Acute Assessment & Recommendation: Patient reports longstanding depression. Recommend start Wellbutrin SR 150 mg by mouth daily for depression symptoms. Continue one-to-one observation. Recommend admission to once medically cleared. Qualifiers: Major depression recurrence: recurrent Active/Remission status: currently active Major depression episode severity: severe Psychotic features: without psychotic features Qualified Code(s): F33.2 - Major depressive disorder, recurrent severe without psychotic features (2) Tylenol overdose Current visit: Yes Status: Acute Qualifiers: Encounter type: subsequent encounter Injury intent: intentional self-harm Qualified Code(s): T39.1X2D - Poisoning by 4-Aminophenol derivatives, intentional self-harm, subsequent encounter History of Present Illness Patient: new to practice Requesting Physician: Heath Bowden DO Reason for consult: Overdose History of present illness: Mr. Garner is a 21 year old male with a history of depression and substance abuse who presented to the hospital after a Tylenol overdose. Patient reports that he has been very depressed lately because he is unable to see his urine and a [id number] son. 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 Patient feels worthless and hopeless about his life. He is glad the overdose did not work because he does want to see his son again. He reports that he was diagnosed with mood disorder at the age of 14 after he overdosed. He denies other suicide attempts but does report multiple family members including cousins and uncles that have completed suicide. He is not currently taking any medications for depression. He denies a history of psychosis. He does have periods of time where he has difficulty with sleeping but he feels this is related to anxiety. He feels like he needs to withdraw from people and does not like to talk to anybody. UDS positive for marijuana. He denies alcohol use. CC: Heath Bowden DO Past Med Surg Social Fam HX - Past Medical History Medical history: asthma - Past Psychiatric History Psychiatric history: Reports: anxiety, depression, prior suicide attempt, previous psychiatric hospitalization Past psychiatric history details: Patient reports 1 previous admission as a 14-year-old. One previous suicide attempt. He is not currently taking medications for depression or anxiety. Family psychiatric history: Yes Family Psychiatric History Details: Multiple family members with depression and anxiety. Family History of Suicide: Completed (Uncle and cousin) - Past Surgical History Surgical History: non-contributory - Social History Smoking Status: Current every day smoker Smokeless Tobacco Status: No Alcohol use: none Drug use: none - Family History Mother History Unknown: Yes Medications & Allergies No Known Home Drugs 05/23/17 [History] 3 Allergy/AdvReac Type Severity Reaction Status Date / Time No Known Allergies Allergy Verified 12/20/16 01:37 Review of Systems Psychiatric: Reports: depression, anxiety, abnormal sleep pattern, hopelessness , irritability. Denies: suicidal ideation, auditory hallucinations, visual hallucinations Mental Status Exam Patient orientation: Yes Person, Yes Time, Yes Place Level of alertness: Alert Patient appearance: Unkempt Behavior: cooperative Psychomotor activity: Normal Eye contact: Maintains Eye Contact Mood description: Depressed Affect description: tearful, dysphoric Speech pattern: Normal rate, Normal rhythm, Normal tone Speech volume: Normal Thought process: Intact, Goal Oriented Thought content: No Suicidal ideation, No Homicidal ideation Perceptual disturbances: No Auditory hallucinations, No Visual hallucinations Attention span: Capable of Focused Attention Memory description: Grossly Intact Patient reliability: Reliable Historian Intelligence estimate: Average Judgment: Limited Insight: Minimal Results - Vital Signs Vital signs: Temp Pulse Resp BP Pulse Ox 98 F 90 14 137/78 95 05/25/17 08:55 05/25/17 08:55 05/25/17 08:55 05/25/17 08:55 05/25/17 08:55 - Drug Levels and Toxicology Drug Levels and Toxicology: Drug Levels and Toxicity 05/24/17 05/24/17 05/25/17 15:35 22:48 04:14 Acetaminophen 1.0 L < 1.0 L < 1.0 L - Labs Labs: Laboratory Last Values WBC 7.7 K/mcL (4.3-11.1) 05/25/17 04:14 RBC 4.34 M/mcL (4.19-5.50) 05/25/17 04:14 Hgb 13.3 g/dL (12.9-16.9) 05/25/17 04:14 Hct 39.7 % (37.5-50.1) 05/25/17 04:14 MCV 91.5 fL (83.0-100.0) 05/25/17 04:14 MCH 30.6 pg (28.0-33.3) 05/25/17 04:14 MCHC 33.5 g/dL (31.6-35.5) 05/25/17 04:14 RDW 12.8 % (11.5-14.5) 05/25/17 04:14 Plt Count 261 K/mcL (140-400) 05/25/17 04:14 MPV 10.1 fL (9.4-12.4) 05/25/17 04:14 Immature Gran % 0.3 % (0-4) 05/25/17 04:14 Seg Neutrophils % 52.3 % 05/25/17 04:14 Lymphocytes % 34.9 % 05/25/17 04:14 Monocytes % 6.9 % 05/25/17 04:14 Eosinophils % 4.8 % 05/25/17 04:14 Basophils % 0.8 % 05/25/17 04:14 Neutrophils # 4.0 K/mcL (1.6-8.9) 05/25/17 04:14 Lymphocytes # 2.7 K/mcL (0.6-4.6) 05/25/17 04:14 Monocytes # 0.5 K/mcL (0.0-1.3) 05/25/17 04:14 Eosinophils # 0.4 K/mcL (0.0-0.6) 05/25/17 04:14 Basophils # 0.1 K/mcL (0.0-0.2) 05/25/17 04:14 PT 14.6 Seconds (9.4-12.1) H 05/24/17 04:15 INR 1.3 05/24/17 04:15 Sodium 142 mEq/L (136-145) 05/25/17 04:14 Potassium 4.0 mEq/L (3.5-4.5) 05/25/17 04:14 Chloride 110 mEq/L (98-109) H 05/25/17 04:14 Carbon Dioxide 25 mEq/L (19-29) 05/25/17 04:14 BUN 4 mg/dL (8-26) L 05/25/17 04:14 Creatinine 0.71 mg/dL (0.72-1.25) L 05/25/17 04:14 Est GFR ( Amer) > 60 (> 60) 05/25/17 04:14 Est GFR (Non-Af Amer) > 60 (> 60) 05/25/17 04:14 BUN/Creatinine Ratio 6 (6-26) 05/25/17 04:14 Glucose 117 mg/dL (70-99) H 05/25/17 04:14 POC Glucose 187 (58-89) H 05/23/17 22:34 Calculated Osmolality 292 (280-300) 05/25/17 04:14 Calcium 8.6 mg/dL (8.6-10.8) 05/25/17 04:14 Total Bilirubin 0.7 mg/dL (0.2-1.2) 05/25/17 04:14 Direct Bilirubin 0.5 mg/dL (0.0-0.5) 05/24/17 15:35 Indirect Bilirubin 0.9 mg/dL (0.0-1.2) 05/24/17 15:35 AST 48 Units/L (5-34) H 05/25/17 04:14 ALT 51 Units/L (0-55) 05/25/17 04:14 Alkaline Phosphatase 57 Units/L (38-126) 05/25/17 04:14 Serum Total Protein 6.0 g/dL (6.0-8.3) 05/25/17 04:14 Albumin 3.1 g/dL (3.5-5.0) L 05/25/17 04:14 Globulin 2.9 g/dL (2.4-3.5) 05/25/17 04:14 Albumin/Globulin Ratio 1.1 (1.1-2.2) 05/25/17 04:14 Urine Color Yellow (Yellow) 05/23/17 17:45 Urine Clarity Clear (Clear) 05/23/17 17:45 Urine pH 5.0 pH Units (5.0-8.0) 05/23/17 17:45 Ur Specific [place] > 1.030 (1.010-1.025) H 05/23/17 17:45 Urine Protein 30 mg/dL (Neg-Trace) H 05/23/17 17:45 Urine Glucose (UA) Normal mg/dL (Normal) 05/23/17 17:45 Urine Ketones Negative mg/dL (Negative) 05/23/17 17:45 Urine Blood Negative (Negative) 05/23/17 17:45 Urine Nitrite Negative (Negative) 05/23/17 17:45 Urine Bilirubin Negative (Negative) 05/23/17 17:45 Urine Urobilinogen Normal mg/dL (Normal) 05/23/17 17:45 Ur Leukocyte Esterase Negative (Negative) 05/23/17 17:45 Urine Microscopic RBC 3-5 per hpf (0-3) H 05/23/17 17:45 Urine Microscopic WBC 5-15 per hpf (0-3) H 05/23/17 17:45 Ur Squamous Epith Cells Many per lpf (None-Few) H 05/23/17 17:45 Amorphous Sediment Few (Few) 05/23/17 17:45 Urine Bacteria None Seen per hpf (None-Few) 05/23/17 17:45 Hyaline Casts Moderate per lpf (None-Few) H 05/23/17 17:45 Salicylates < 5.0 mg/dL (15-30) L 05/23/17 16:44 Urine Opiates Screen Negative ng/mL (Qizwga=183) 05/23/17 17:47 Acetaminophen < 1.0 mcg/mL (10-30) L 05/25/17 04:14 Ur Barbiturates Screen Negative ng/mL (Dqtywk=439) 05/23/17 17:47 Ur Phencyclidine Scrn Negative ng/mL (Cutoff=25) 05/23/17 17:47 Ur Amphetamines Screen Negative ng/mL (Aiusyj=4149) 05/23/17 17:47 U Benzodiazepines Scrn Negative ng/mL (Xxgkbg=235) 05/23/17 17:47 Urine Cocaine Screen Negative ng/mL (Cutoff= 300) 05/23/17 17:47 U Marijuana (THC) Screen Positive ng/mL (Cutoff = 50) H 05/23/17 17:47 Ethyl Alcohol < 10 mg/dL (0-10) 05/23/17 16:44 Consult Discharge Plan - Plan Referrals: Gideon Harris MD [Non-Partnered Physician] - 06/20/17 2:00 pm (please do not miss your appt. to get establish) NONE,PCP [Primary Care Provider] -
[2017-05-25 15:17] LABS: Alanine Aminotransferase 60 Units/L (0-55); Albumin 3.6 g/dL (3.5-5.0); Alkaline Phosphatase 68 Units/L (38-126); Aspartate Amino Transferase 48 Units/L (5-34); BUN/Creatinine Ratio 6 (6-26); Bilirubin,Total 0.7 mg/dL (0.2-1.2); Blood Urea Nitrogen 5 mg/dL (8-26); Calcium 9.5 mg/dL (8.6-10.8); Carbon Dioxide 23 mEq/L (19-29); Chloride 108 mEq/L (98-109); Globulin 3.6 g/dL (2.4-3.5); Glucose 131 mg/dL (70-99); Osmolality,Calculated 291 (280-300); Potassium 3.8 mEq/L (3.5-4.5); Sodium 141 mEq/L (136-145); Total Protein 7.2 g/dL (6.0-8.3); eGFR For African Americans > 60 (> 60); eGFR For Non-African Americans > 60 (> 60)
[2017-05-25] MEDS: BuPROPion SR (12 HR) 150 MG TABLET PO SCH (16:42)
[2017-05-25] MEDS: Nicotine 21 MG PATCH.TD24 TD SCH (16:42)
[2017-05-26 05:45] LABS: Alanine Aminotransferase 59 Units/L (0-55); Albumin 4.3 g/dL (3.5-5.0); Albumin/Globulin Ratio 1.2 (1.1-2.2); Alkaline Phosphatase 77 Units/L (38-126); Aspartate Amino Transferase 41 Units/L (5-34); BUN/Creatinine Ratio 12 (6-26); Blood Urea Nitrogen 9 mg/dL (8-26); Calcium 10.4 mg/dL (8.6-10.8); Carbon Dioxide 25 mEq/L (19-29); Chloride 105 mEq/L (98-109); Globulin 3.6 g/dL (2.4-3.5); Glucose 97 mg/dL (70-99); Osmolality,Calculated 291 (280-300); Potassium 3.8 mEq/L (3.5-4.5); Sodium 141 mEq/L (136-145); Total Protein 7.9 g/dL (6.0-8.3); eGFR For African Americans > 60 (> 60); eGFR For Non-African Americans > 60 (> 60)
[2017-05-26 05:59] LABS: Bilirubin,Total 1.5 mg/dL (0.2-1.2)
[2017-05-26] MEDS: BuPROPion SR (12 HR) 150 MG TABLET PO SCH (09:47)
[2017-05-26] MEDS: Nicotine 21 MG PATCH.TD24 TD SCH (09:48)
--- NOTE | 2017-05-26 09:56 | Discharge Summary ---
Date of Encounter: 05/26/17 Time of Encounter: 09:48 - Discharge Diagnosis (1) Tylenol overdose Priority: Primary Status: Acute Qualifiers: Encounter type: subsequent encounter Injury intent: intentional self-harm Qualified Code(s): T39.1X2D - Poisoning by 4-Aminophenol derivatives, intentional self-harm, subsequent encounter (2) Substance abuse Priority: Primary Status: Acute (3) Suicidal ideation Priority: Primary Status: Acute (4) Tobacco dependence Priority: Secondary Status: Acute (5) Psychosis Priority: Secondary Status: Acute Qualifiers: Psychosis type: unspecified psychosis type Qualified Code(s): F29 - Unspecified psychosis not due to a substance or known physiological condition (6) Acute metabolic encephalopathy Priority: Secondary Status: Acute (7) Major depression Priority: Secondary Status: Acute Qualifiers: Major depression recurrence: recurrent Active/Remission status: currently active Major depression episode severity: severe Psychotic features: without psychotic features Qualified Code(s): F33.2 - Major depressive disorder, recurrent severe without psychotic features - Discharge Medications Home Medications: BuPROPion SR (12 HR) [Wellbutrin SR] 150 mg PO DAILY tablet.er 05/26/17 [Rx] Nicotine Patch [Nicoderm] 21 mg TD DAILY patch.[id number] 05/26/17 [Rx] Allergies/Adverse Reactions: 3 Allergy/AdvReac Type Severity Reaction Status Date / Time No Known Allergies Allergy Verified 12/20/16 01:37 Date of admission: 05/25/17 15:57 Primary care physician: PCP NONE - Patient Status Disposition: Transfer Psychiatric Hosp Condition: Good Overall status at discharge: patient is back to baseline - Discharge Instructions Follow Up With: UcGideon you MD [Non-Partnered Physician] - 06/20/17 2:00 pm (please do not miss your appt. to get establish) NONE,PCP [Primary Care Provider] - - Diet and Activity Activity: increase activity as tolerated Diet: advance to your usual diet Hospital course: Mr. Garner is a 21 year old male with known PMH of Bipolar / Depression , Poly substance abuse who was brought into ER by family y/d afternoon around 3.00 PM stating he did take a bottle full of Tylenol tablets an hour prior to ER visit around 2.00 PM. He did mentioned he is going through some personal problems lately, also he is feeling more depressed and unable to see a psychiatrist right on time, he wanted kill himself by overdoing on Tylenol tablets. He denied any Alcohol dependence / abuse or Illicit drug usage. However his UDS came back as positive for Marijuana. Pt was admitted in the ICU and started him on acetylcysteine gtt for 21hr + 16hrs. His tylenol level came down < 1.0 in 24hrs after his initial ingestion. Pt started feeling better now, denied any CP / SOB. denied any suicidal ideation at this moment. His LFT's stayed stable total Bili @ 1.5, AST 41, ALT 59. He denied any abdominal pain. Tolerating pO intake well. Pt was evaluated by Psych and recommend to in patient psych unit when pt is medically stable. Pt is stable from medical stand point, so will d/c him to 1 A today. Recommend to continue checking CMP daily x 3 days. I will f/u on this CMP results from 1 A. - Time Spent with Patient Total time spent providing and/or coordinating discharge services: - Constitutional Vitals: Temp Pulse Resp BP Pulse Ox 98.4 F 104 19 143/82 96 05/26/17 08:22 05/26/17 08:51 05/26/17 08:22 05/26/17 08:22 05/26/17 08:51 General appearance: Present: A&O X 3, no acute distress - Head Head exam: Present: atraumatic, normal inspection - Neck Neck exam general surgery: Present: supple - Respiratory Respiratory exam: Present: CTAB. Absent: rales, respiratory distress, rhonchi, wheezes - Cardiovascular Cardiovascular exam: Present: RRR, +S1, +S2. Absent: diastolic murmur, gallop, rubs, systolic murmur - GI/Abdominal GI/Abdominal exam: Present: normal bowel sounds, soft, no peritoneal signs. Absent: distended, tenderness - Extremities Exam Extremities exam: Absent: calf tenderness, pedal edema, tenderness - Back Exam Back exam: Absent: CVA tenderness (L), CVA tenderness (R) - Psychiatric Psychiatric exam: Present: normal affect, normal mood - VTE Reasons for not Prescribing Prophylaxis: Treatment not Indicated - Low risk for VTE Documentation of Mechanical Device: Intermittent pneumatic compression device
[2017-05-26 16:04] VITALS: BP 135/83
[2017-05-26] MEDS ORDERED: *HR* LORazepam 1 MG TABLET PO PRN (18:07)
[2017-05-26] MEDS ORDERED: MOM Conc 10 ML UD.LIQ PO PRN (18:07)
[2017-05-26] MEDS ORDERED: Mag Hydrox/Al Hydrox/Simeth 30 ML UDC PO PRN (18:07)
[2017-05-26] MEDS ORDERED: hydrOXYzine pamoate 25 MG CAPSULE PO PRN (18:07)
[2017-05-26] MEDS ORDERED: Haloperidol Lactate 5 MG/ML VIAL IM PRN (18:07)
[2017-05-26] MEDS ORDERED: traZODone 50 MG TABLET PO PRN (18:07)
[2017-05-26] MEDS ORDERED: *HR* LORazepam 2 MG/ML VIAL IM PRN (18:07)
[2017-05-26] MEDS ORDERED: Ibuprofen 400 MG TABLET PO PRN (18:07)
[2017-05-27] MEDS ORDERED: Nicotine 21 MG PATCH.TD24 TD SCH (09:00)
[2017-05-27] MEDS ORDERED: BuPROPion SR (12 HR) 150 MG TABLET PO SCH (09:00)
== END 2017-05-26 17:05 | DRG 817 ==
LOC: ICNU 15:45 → EMEROO 15:45 → ICNU 22:34 → 2ANU 05-24 18:24
PROVIDERS: ADMIT Internal Medicine; ATTEND Internal Medicine

== ENCOUNTER 2017-05-26 17:07 | Inpatient (IN) ==
[2017-05-26] MEDS ORDERED: *HR* LORazepam 1 MG TABLET PO PRN (19:11)
[2017-05-26] MEDS ORDERED: Mag Hydrox/Al Hydrox/Simeth 30 ML UDC PO PRN (19:11)
[2017-05-26] MEDS ORDERED: MOM Conc 10 ML UD.LIQ PO PRN (19:11)
[2017-05-26] MEDS ORDERED: Haloperidol Lactate 5 MG/ML VIAL IM PRN (19:11)
[2017-05-26] MEDS ORDERED: Ibuprofen 400 MG TABLET PO PRN (19:11)
[2017-05-26] MEDS ORDERED: *HR* LORazepam 2 MG/ML VIAL IM PRN (19:11)
[2017-05-26] MEDS: traZODone 50 MG TABLET PO PRN (21:38)
[2017-05-26] MEDS: hydrOXYzine pamoate 25 MG CAPSULE PO PRN (21:38)
[2017-05-27 07:25] LABS: BUN/Creatinine Ratio 14 (6-26); Blood Urea Nitrogen 11 mg/dL (8-26); Carbon Dioxide 27 mEq/L (19-29); Chloride 104 mEq/L (98-109); Glucose 95 mg/dL (70-99); Osmolality,Calculated 291 (280-300); Potassium 4.4 mEq/L (3.5-4.5); Sodium 141 mEq/L (136-145); eGFR For African Americans > 60 (> 60); eGFR For Non-African Americans > 60 (> 60)
[2017-05-27] MEDS: Nicotine 21 MG PATCH.TD24 TD SCH (09:37)
[2017-05-27] MEDS: BuPROPion SR (12 HR) 150 MG TABLET PO SCH (09:37)
--- NOTE | 2017-05-27 11:01 | Psychiatry History & Physical ---
Date of Encounter: 05/27/17 Time of Encounter: 10:22 History of Present Illness Patient Stated Chief Complaint: Suicide attempt by overdose Medicare Admission Attestation: For traditional Medicare patients the provided hospital inpatient services are reasonable and necessary and in the case of services not specified as inpatient -only under 42 CFR 419.22 (n), that they are appropriately provided as inpatient services in accordance 42 CFR 412.3. For Critical Access Hospital the patient may reasonably be expected to be discharged or transferred to a hospital within 96 hours after admission to the Critical Access Hospital. Admitted From: Intrahospital Transfer Plans for Post Hospital Care: Home History of Present Illness: Mr. Garner is a 21 year old male who was referred for hospitalization from [facility] where he was seen and assessed by Dr. Palmer(Dr. Palmer's consultation note is reviewed) after he was admitted due to an overdose of Tylenol. Patient took a lethal amount of Tylenol to end his life. Patient does endorse a history of depression. He reported that he has been using a lot of challenges in his life which is contribution to his recent bout of depression. He reported that he has a 1-1/2-year-old son from a previous relationship and he is not allowed to see his son and he went to the court and he was recently told that he is not allowed to be around his son 5 years which is devastating and disappointing for him. He also reported that he is currently residing with his girlfriend and her son and she is only working part-time and having a hard time meeting the financial challenges. He is overwhelmed stressed and reporting low mood and anhedonia hopeless helpless feelings crying and weeping spells low energy levels and recurrent suicidal thoughts and ideations. Since patient made a lethal suicide attempt and continued to appear extremely depressed and hopeless it was decided to transfer him to [facility] now on a mental health facility for safety concerns. Past Med Surg Social Fam HX - Past Medical History Medical history: asthma - Past Psychiatric History Psychiatric history: Reports: depression, prior suicide attempt, previous psychiatric hospitalization Past psychiatric history details: Patient has a previous suicide attempt and has 1 past psychiatric hospitalization when he was 14 years old. He is currently not receiving any treatment. Family psychiatric history: Yes Family History of Suicide: Completed Family Suicide History Details: Patient reported that multiple members on the father's side of the family suffers from depression and has attempted and completed suicide. - Past Surgical History Surgical History: non-contributory - Social History Smoking Status: Current every day smoker Smokeless Tobacco Status: No Alcohol use: none Drug use: none Occupational status: employed Current living situation: Home - Independent Activity Level: Independent ambulation Recent Out of Country Travel Within the Last 8 Weeks: No Exposure or Possible Exposure to Illness During Travel: No Additional social history: Patient was born in [place] and raised by his parents. Denies any physical or sexual abuse. He is educated in ninth grade he reported that he was in special ed classes for being a slow learner. He has one 1-1/2- year-old son from a previous relationship. She is currently working part-time for [employer] and residing with his girlfriend and her child. He is currently on probation for previous domestic violence related charge - Family History Mother Adopted: [place]: Radha Garner Age: 41 Family Member Ethnicity: Non- Living Status: Still Living Hx Family Cardiac Disorders: No Hx Family Respiratory Disorders: Yes (asthma) Hx Family Cancer: Yes (cervical and breast) Hx Family GI Disorders: No Hx Family Genitourinary Disorders: No Hx Family Endocrine Disorder: No Hx Family Musculoskeletal Disorders: No Hx Family Neuromuscular Disorders: No Hx Family Neurologic Disorders: No Hx Family HEENT Disorders: No Hx Family Autoimmune Disorders: No Hx Family Reproductive Disorders: No Hx Family Psychosocial Disorders: No Hx Family Medical Disorders: No (mother diagnosed with with breast and cervical cancer) Medications & Allergies BuPROPion SR (12 HR) [Wellbutrin SR] 150 mg PO DAILY tablet.er 05/26/17 [Rx] Nicotine Patch [Nicoderm] 21 mg TD DAILY patch.td24 05/26/17 [Rx] 3 Allergy/AdvReac Type Severity Reaction Status Date / Time No Known Allergies Allergy Verified 05/27/17 10:00 Review of Systems Psychiatric: Reports: depression, anxiety, suicidal ideation, anhedonia, hopelessness, mood swings Mental Status Exam Patient orientation: Yes Person, Yes Time, Yes Place Level of alertness: Alert Patient appearance: Unkempt, Disheveled Behavior: anxious, tearful Psychomotor activity: Slowed Eye contact: Maintains Eye Contact Mood description: Depressed Affect description: blunted, tearful, dysphoric Speech pattern: Slowed Speech volume: Soft/Quiet Thought process: Linear, Goal Oriented Thought content: No Suicidal ideation, No Homicidal ideation, No Overt delusions Perceptual disturbances: No Auditory hallucinations, No Visual hallucinations Attention span: Capable of Focused Attention Memory description: Grossly Intact Patient reliability: Reliable Historian Intelligence estimate: Below Average Judgment: Limited Insight: Partial Additional Findings: The patient is denying any suicidal ideation but still endorsing hopelessness and no safety plan Exam - HEENT Head exam IM: Present: normal inspection Eye exam IM: Present: normal appearance ENT exam IM: Present: normal exam - Neurological Neurological exam IM: Present: CN II-XII intact, normal gait, oriented X3, reflexes normal, no focal deficits, strengths equal and symetr throughout. Absent: motor sensory deficit - Respiratory Respiratory exam IM: Absent: respiratory distress - GI/Abdominal GI/Abdominal exam IM: Present: normal bowel sounds - Extremities Extremities exam IM: Present: normal inspection - Skin Skin exam IM: Present: normal color Results - Vital Signs Vital signs: Temp Pulse Resp BP 99.0 F 114 18 132/80 05/27/17 09:00 05/27/17 09:00 05/27/17 09:00 05/27/17 09:00 - Labs Labs: Laboratory Last Values Sodium 141 mEq/L (136-145) 05/27/17 06:58 Potassium 4.4 mEq/L (3.5-4.5) 05/27/17 06:58 Chloride 104 mEq/L (98-109) 05/27/17 06:58 Carbon Dioxide 27 mEq/L (19-29) 05/27/17 06:58 BUN 11 mg/dL (8-26) 05/27/17 06:58 Creatinine 0.80 mg/dL (0.72-1.25) 05/27/17 06:58 Est GFR ( Amer) > 60 (> 60) 05/27/17 06:58 Est GFR (Non-Af Amer) > 60 (> 60) 05/27/17 06:58 BUN/Creatinine Ratio 14 (6-26) 05/27/17 06:58 Glucose 95 mg/dL (70-99) 05/27/17 06:58 Calculated Osmolality 291 (280-300) 05/27/17 06:58 Calcium 10.0 mg/dL (8.6-10.8) 05/27/17 06:58 Assessment and Plan (1) Major depression Current visit: No Status: Acute Plan: Admit inpatient for safety and stabilization, Close observation, Suicide Precautions per unit protocol, Encourage participation in unit milieu, Group Therapy, Monitor sleep, Monitor appetite Risks, benefits, side effects, alternatives discussed w/pt: Yes Patient agreeable to treatment: Yes Plans for Post Hospital Care: Home Estimated Length of Stay (Days): 4 Qualifiers: Major depression recurrence: recurrent Active/Remission status: currently active Major depression episode severity: severe Psychotic features: without psychotic features Qualified Code(s): F33.2 - Major depressive disorder, recurrent severe without psychotic features
[2017-05-27] MEDS: traZODone 50 MG TABLET PO PRN (20:51)
[2017-05-27] MEDS: hydrOXYzine pamoate 25 MG CAPSULE PO PRN (20:52)
[2017-05-28 08:10] LABS: BUN/Creatinine Ratio 14 (6-26); Blood Urea Nitrogen 13 mg/dL (8-26); Calcium 9.9 mg/dL (8.6-10.8); Carbon Dioxide 30 mEq/L (19-29); Chloride 102 mEq/L (98-109); Glucose 91 mg/dL (70-99); Osmolality,Calculated 288 (280-300); Potassium 4.5 mEq/L (3.5-4.5); Sodium 139 mEq/L (136-145); eGFR For African Americans > 60 (> 60); eGFR For Non-African Americans > 60 (> 60)
[2017-05-28] MEDS: Nicotine 21 MG PATCH.TD24 TD SCH (08:45)
[2017-05-28] MEDS: BuPROPion SR (12 HR) 150 MG TABLET PO SCH (08:46)
--- NOTE | 2017-05-28 15:30 | Psychiatry Progress Note ---
Date of Encounter: 05/28/17 Time of Encounter: 15:25 Subjective Interval history: Client reports he is feeling much better. Describes his overdose as a "dumb ass move." Client reports he has been talking with staff and peers and feels talking has really helped him. Plans to ask his counselor if he can see him twice a month instead of once. Also willing to follow up with a psychiatrist for medication management. Claims he took an antidepressant several years ago but has not taken anything for his mood in a long time. Started on Wellbutrin this admission and reports it is working. Had been living with girlfriend prior to admission but thinks he will live with his father after discharge. Claims brother can also stay with him if needed. Denies any further SI. Looks good today. Will check to see if he needs any further medical work-up as overdose attempt was serious and could have been fatal. Will also verify living arrangements and safety issues with family and secure outpatient follow- up appointments. Likely discharge tomorrow. Review of Systems Constitutional: Denies: fever, chills, weakness, weight change Eyes: Denies: eye pain, vision change Ears, Nose, Throat: Denies: ear pain, throat pain, dental pain, hearing loss, congestion Cardiovascular: Denies: chest pain, palpitations, dyspnea on exertion Respiratory: Denies: cough, dyspnea, wheezes Gastrointestinal: Denies: abdominal pain, nausea, vomiting, diarrhea, constipation Musculoskeletal: Denies: joint swelling, joint pain Neurological: Denies: headache, weakness, numbness, memory loss Psychiatric: Reports: depression, anxiety, suicidal ideation, anhedonia, hopelessness, mood swings Objective: Exam Patient orientation: Yes Person, Yes Time, Yes Place Level of alertness: Alert Patient appearance: Appropriate Behavior: calm, cooperative Psychomotor activity: Normal Eye contact: Maintains Eye Contact Mood description: Euthymic/stable Affect description: congruent with mood, full range Speech pattern: Normal rate, Normal rhythm, Normal tone Speech volume: Normal Thought process: Goal Oriented Thought content: No Suicidal ideation, No Homicidal ideation, No Overt delusions Perceptual disturbances: No Auditory hallucinations, No Visual hallucinations Judgment: Limited Insight: Partial Results - Vital Signs Vital Signs: Temp Pulse Resp BP 99 F 96 16 124/81 05/28/17 09:00 05/28/17 09:00 05/28/17 09:00 05/28/17 09:00 - Labs Labs: Laboratory Results - last 24 hr 05/28/17 07:33 Sodium 139 Potassium 4.5 Chloride 102 Carbon Dioxide 30 H BUN 13 Creatinine 0.93 Est GFR ( Amer) > 60 Est GFR (Non-Af Amer) > 60 BUN/Creatinine Ratio 14 Glucose 91 Calculated Osmolality 288 Calcium 9.9 Assessment and Plan (1) Major depression Current visit: No Status: Acute Plan: Continue hospitalization, Close observation, Suicide Precautions per unit protocol, Encourage participation in unit milieu, Group Therapy, Monitor sleep, Monitor appetite Risks, benefits, side effects, alternatives discussed w/pt: Yes Patient agreeable to treatment: Yes Qualifiers: Major depression recurrence: recurrent Active/Remission status: currently active Major depression episode severity: severe Psychotic features: without psychotic features Qualified Code(s): F33.2 - Major depressive disorder, recurrent severe without psychotic features Consult Discharge Plan - Plan Referrals: NONE,PCP [Primary Care Provider] -
[2017-05-28] MEDS: hydrOXYzine pamoate 25 MG CAPSULE PO PRN (20:14)
[2017-05-28] MEDS: traZODone 50 MG TABLET PO PRN (20:14)
[2017-05-29 07:37] LABS: BUN/Creatinine Ratio 18 (6-26); Blood Urea Nitrogen 15 mg/dL (8-26); Calcium 9.7 mg/dL (8.6-10.8); Carbon Dioxide 26 mEq/L (19-29); Chloride 104 mEq/L (98-109); Glucose 88 mg/dL (70-99); Osmolality,Calculated 292 (280-300); Potassium 4.3 mEq/L (3.5-4.5); Sodium 141 mEq/L (136-145); eGFR For African Americans > 60 (> 60); eGFR For Non-African Americans > 60 (> 60)
[2017-05-29 08:36] VITALS: BP 122/77
[2017-05-29] MEDS: Nicotine 21 MG PATCH.TD24 TD SCH (08:39)
[2017-05-29] MEDS: BuPROPion SR (12 HR) 150 MG TABLET PO SCH (08:40)
--- NOTE | 2017-05-29 12:46 | Discharge Summary ---
Date of Encounter: 05/29/17 Time of Encounter: 12:44 Diagnosis - Discharge Diagnosis (1) Major depression Status: Acute Qualifiers: Major depression recurrence: recurrent Active/Remission status: currently active Major depression episode severity: severe Psychotic features: without psychotic features Qualified Code(s): F33.2 - Major depressive disorder, recurrent severe without psychotic features Medications - Discharge Medications Prescriptions: BuPROPion SR (12 HR) [Wellbutrin SR] 150 mg PO DAILY #28 tablet.er hydrOXYzine pamoate [HydrOXYzine Pamoate] 25 mg PO TID PRN #56 capsule PRN Reason: Anxiety traZODone [TraZODone] 50 mg PO HS PRN #28 tablet PRN Reason: Insomnia BuPROPion SR (12 HR) [Wellbutrin SR] 150 mg PO DAILY #28 tablet.er 05/29/17 [Rx] Nicotine Patch [Nicoderm] 21 mg TD DAILY patch.td24 05/29/17 [Rx] hydrOXYzine pamoate [HydrOXYzine Pamoate] 25 mg PO TID PRN #56 capsule 05/29/17 [Rx] traZODone [TraZODone] 50 mg PO HS PRN #28 tablet 05/29/17 [Rx] 3 Allergy/AdvReac Type Severity Reaction Status Date / Time No Known Allergies Allergy Verified 05/27/17 10:00 Results Procedures and tests throughout hospitalization: Completed Lab Orders Category Date Time Status BMP [Basic Metabolic Panel] Routine Lab 05/27/17 06:58 Completed BMP [Basic Metabolic Panel] Routine Lab 05/28/17 07:33 Completed BMP [Basic Metabolic Panel] Routine Lab 05/29/17 07:14 Completed Provider Date of admission: 05/26/17 17:07 Primary care physician: PCP NONE Discharging clinician: Carine Noonan Assessment and Plan - Patient/Caregiver Discharge Instructions Activity: resume usual activities as tolerated Diet: regular diet - Follow up Plan Follow up with: [facility] Varinder Hollins [Outside] - 06/20/17 1:45 pm (The above appointment is with Dr. Harris for primary healthcare and medication management services.) [facility] [place] - 06/04/17 2:00 pm (The above appointment is with [facility] outpatient mental health counseling services.) Functional capacity at discharge: independent ambulation Overall status at discharge: Stable Disposition: Home, Self-Care Hospital Course Hospital course: Mr. Garner is a 21 year old male who was transferred from the medical floor following a Tylenol overdose. Fili was consistent in telling staff his overdose was an impulsive and irresponsible move and he denied SI from the time he arrived on the unit. He was social and he interacted with his peers. He never appeared outwardly depressed. He was cooperative with medications and benefitted from a combination of Wellbutrin, Trazodone, and Vistaril. He was visited on the unit by his girlfriend and her child and he had plans to return to live with them. Staff were able to talk to his family and his father, mother , and brother are all supportive as well. Fili and his father indicated his brother could stay with him if he needed someone beyond his girlfriend. Fili is linked with [facility] and he will be discharged with enough medications to get him through his first outpatient psychiatry appointment in mid June. - Time Spent with Patient Total time spent providing and/or coordinating discharge services: Quality - Multiple Antipsychotics Patient discharged on 2 or more antipsychotic medications: No Procedures - Procedures Procedures: Medication Management, Crisis Stabilization, Supportive Therapy, Group Therapy Mental Status Exam - Mental Status Exam Patient orientation: Yes Person, Yes Time, Yes Place Level of alertness: Alert Patient appearance: Appropriate Behavior: calm, cooperative Psychomotor activity: Normal Eye contact: Maintains Eye Contact Mood description: Euthymic/stable Affect description: congruent with mood, full range Speech pattern: Normal rate, Normal rhythm, Normal tone Speech Volume: Normal Thought process: Linear, Goal Oriented Thought Content: No Suicidal ideation, No Homicidal ideation, No Overt delusions Perceptual Disturbances: No Auditory hallucinations, No Visual hallucinations Judgment: Fair Insight: Partial
== END 2017-05-29 14:00 | disposition home or self-care (01) | DRG 751 ==
LOC: 1ANU 17:07
PROVIDERS: ADMIT Psychiatry & Neurology Psychiatry; ATTEND Psychiatry & Neurology Psychiatry

== ENCOUNTER 2019-11-25 22:39 | Observation (INO) ==
[2019-11-25] MEDS ORDERED: Lidocaine 1% 20 ML MDV INFILT ONE (23:00)
[2019-11-25] MEDS ORDERED: Isovue-370 500 ML BOTTLE IVP ONE (23:02)
[2019-11-25 23:39] LABS: Basophils # 0.1 K/mcL (0.0-0.2); Basophils % 0.8 %; Eosinophils # 0.4 K/mcL (0.0-0.6); Eosinophils % 2.8 %; Hematocrit 48.6 % (37.5-50.1); Hemoglobin 16.3 g/dL (12.9-16.9); Immature Granulocytes % 0.3 % (0-4); Lymphocytes # 2.7 K/mcL (0.6-4.6); Lymphocytes % 21.8 %; Mean Corpuscular HGB Conc 33.5 g/dL (31.6-35.5); Mean Corpuscular Hemoglobin 30.6 pg (28.0-33.3); Mean Corpuscular Volume 91.4 fL (83.0-100.0); Mean Platelet Volume 10.7 fL (9.4-12.4); Monocytes # 0.9 K/mcL (0.0-1.3); Neutrophils # 8.3 K/mcL (1.6-8.9); Platelet Count 288 K/mcL (140-400); Red Blood Count 5.32 M/mcL (4.19-5.50); Red Cell Distribution Width 12.5 % (11.5-14.5); Segmented Neutrophils % 67.3 %; White Blood Count 12.4 K/mcL (4.3-11.1)
[2019-11-25 23:50] LABS: Alanine Aminotransferase 24 Units/L (7-52); Albumin 4.7 g/dL (3.5-5.7); Albumin/Globulin Ratio 1.5 (1.1-2.2); Alkaline Phosphatase 67 Units/L (34-104); Aspartate Amino Transferase 18 Units/L (13-39); BUN/Creatinine Ratio 11 (6-26); Bilirubin,Total 0.4 mg/dL (0.3-1.0); Blood Urea Nitrogen 9 mg/dL (6-20); C-Reactive Protein 13 mg/L (Less than 10); Carbon Dioxide 24 mEq/L (23-29); Chloride 103 mEq/L (98-107); Globulin 3.2 g/dL (2.4-3.5); Glucose 103 mg/dL (70-105); Osmolality,Calculated 287 (280-300); Sodium 139 mEq/L (136-145); Total Protein 7.9 g/dL (6.4-8.9); eGFR For African Americans > 60 (> 60); eGFR For Non-African Americans > 60 (> 60)
[2019-11-26] MEDS ORDERED: Ampicillin/Sulbactam 1,500 MG in 0.9 % Sodium Chloride Mini Bag 100 ML IVPB ONE (00:06)
[2019-11-26] MEDS ORDERED: Naloxone 0.4 MG/ML INJ IVP PRN (02:21)
[2019-11-26] MEDS ORDERED: Ondansetron 4 MG/2 ML VIAL IVP PRN (02:21)
[2019-11-26] MEDS ORDERED: 0.9 % Sodium Chloride 1,000 ML IVC SCH (02:30)
[2019-11-26] MEDS ORDERED: *HR* OxyCODONE/APAP 5/325 TABLET PO PRN (03:30)
[2019-11-26] MEDS ORDERED: Acetaminophen 325 MG TABLET PO PRN (03:30)
[2019-11-26] MEDS ORDERED: Ampicillin/Sulbactam 3,000 MG in 0.9 % Sodium Chloride 100 ML IVPB SCH (06:00)
[2019-11-26] MEDS ORDERED: *HR* Enoxaparin 40 MG/0.4 ML SYRINGE SQ SCH (06:00)
[2019-11-26] MEDS ORDERED: Ampicillin/Sulbactam 3,000 MG in 0.9 % Sodium Chloride Mini Bag 100 ML IVPB SCH ×2 (06:15→12:00)
[2019-11-26 06:31] VITALS: BP 137/78
[2019-11-26 07:56] LABS: Basophils # 0.1 K/mcL (0.0-0.2); Eosinophils # 0.4 K/mcL (0.0-0.6); Eosinophils % 3.7 %; Hematocrit 45.6 % (37.5-50.1); Hemoglobin 15.2 g/dL (12.9-16.9); Immature Granulocytes % 0.5 % (0-4); Lymphocytes # 3.2 K/mcL (0.6-4.6); Lymphocytes % 27.5 %; Mean Corpuscular HGB Conc 33.3 g/dL (31.6-35.5); Mean Corpuscular Volume 93.1 fL (83.0-100.0); Mean Platelet Volume 10.7 fL (9.4-12.4); Monocytes # 1.1 K/mcL (0.0-1.3); Monocytes % 9.6 %; Neutrophils # 6.6 K/mcL (1.6-8.9); Platelet Count 277 K/mcL (140-400); Red Cell Distribution Width 12.6 % (11.5-14.5); Segmented Neutrophils % 57.7 %; White Blood Count 11.5 K/mcL (4.3-11.1)
[2019-11-26 08:09] LABS: BUN/Creatinine Ratio 10 (6-26); Blood Urea Nitrogen 11 mg/dL (6-20); Calcium 9.4 mg/dL (8.6-10.3); Carbon Dioxide 27 mEq/L (23-29); Chloride 104 mEq/L (98-107); Glucose 102 mg/dL (70-105); Magnesium 1.7 mg/dL (1.6-2.6); Osmolality,Calculated 288 (280-300); Potassium 3.8 mEq/L (3.5-5.1); Sodium 139 mEq/L (136-145); eGFR For African Americans > 60 (> 60); eGFR For Non-African Americans > 60 (> 60)
[2019-11-26] MEDS ORDERED: Aminoglycoside Consult 1 EACH MC ONE (11:59)
[2019-11-26] MEDS ORDERED: Sulfamethoxazole/Trimeth DS 1 EACH TABLET PO SCH (21:00)
== END 2019-11-26 12:00 | disposition home or self-care (01) ==
LOC: 3ANU 22:39 → EMEROOARM 22:39 → SUATTDRO 11-26 01:48 → 3ANU 11-26 03:08
PROVIDERS: ADMIT Internal Medicine; ATTEND Family Medicine